=== PATIENT | female | born 1950 | race Caucasian/White ===

== ENCOUNTER 2016-08-24 08:26 | Day surgery (SDC) | payer MEDICARE ==
[~2016-08-24 08:26] MED LIST: FENTANYL 250 MCG/5 ML AMP IV PRN; IV START KIT ONE; LACTATED RINGERS 1,000 ML IV SCH; MIDAZOLAM HCL 5 MG/5 ML VIAL IV PRN
--- NOTE | 2016-08-26 13:40 | SURGPATH ---
[facility] [address] [place] [id number] Patient Name: GRIFFIN BUCHANAN MR#: [id number] : 1950 Gender: F Specimen #: [id number] Collected: 08/24/2016 Received: 08/25/2016 Reported: 08/26/2016 Submitting Phys: GHAZALA CARMONA Copy To Phys: [facility] MEENA VALENZUELA Clinical History / Pre-Operative Diagnosis: SCREENING; HISTORY OF POLYPS Specimen Source / Surgical Procedure Performed: SIGMOID AT 13 CM Interpretation: SIGMOID COLON, 13 CM, BIOPSY: - VILLOUS ADENOMA AND HYPERPLASTIC POLYP Electronically Signed Out Nai Lantigua M.D. Gross Description: The specimen is received in a formalin filled container labeled with the patient's name and "sigmoid polyp". A small polypoid taylor biopsy is 0.3 x 0.3 x 0.3 cm and a large, finely nodular, polypoid dark pink-taylor biopsy is 1.8 x 1.5 x 0.7 cm. The smaller polyp is submitted intact in cassette A. The larger polyp is multiply cross sectioned and submitted as four sections in cassette B. Sarah Flower Microscopic Description: The smaller fragment shows a hyperplastic polyp without dysplasia. The larger polyp shows adenomatous change with villous architecture. There is no high-grade dysplasia. 1: 91836 D12.5
== END 2016-08-24 10:33 | disposition home or self-care (01) ==
LOC: SDC 08:26
PROVIDERS: ATTEND Internal Medicine Gastroenterology
PROC: 0DBN8ZX Excision of Sigmoid Colon, Via Natural or Artificial Opening Endoscopic, Diagnostic (ICD-10-PCS; principal; 2016-08-24)
DX: Z12.11 Encounter for screening for malignant neoplasm of colon (principal); D12.5 Benign neoplasm of sigmoid colon; K57.30 Diverticulosis of large intestine without perforation or abscess without bleeding; Z86.010 Personal history of colon polyps; E78.5 Hyperlipidemia, unspecified; Z79.82 Long term (current) use of aspirin; D12.2 Benign neoplasm of ascending colon
CPT/HCPCS: 45385; J3010; J2250; J7120